=== PATIENT | female | born 1970 | race Caucasian/White ===

== ENCOUNTER 2018-01-12 18:19 | Emergency (ER) | payer OTHER ==
[2018-01-12] MEDS ORDERED: METHOCARBAMOL 1,000 MG in NA CHLORIDE 0.9% 100 ML IV ONE (19:00)
[2018-01-12] MEDS ORDERED: METHYLPREDNISOLONE 125 MG INJ ONE (19:01)
[2018-01-12] MEDS ORDERED: KETOROLAC 30 MG/ML INJ ONE (19:01)
--- NOTE | 2018-01-12 19:26 | RAD REPORT ---
EXAM DESCRIPTION: CT - Spine Lumbar Wo Con - 01/12/2018 7:17 pm CLINICAL HISTORY: Radiculopathy. LOWER BACK PAIN COMPARISON: No comparisons TECHNIQUE: Axial noncontrast CT imaging of the lumbar spine was performed with coronal and sagittal re-formatted images. All CT scans are performed using dose optimization technique as appropriate and may include automated exposure control or mA/KV adjustment according to patient size. FINDINGS: No acute lumbar spine fracture seen. Bilateral spondylolysis is identified at L5-S1 with 9 mm anterolisthesis of L5 on S1. Vacuum disc degeneration is also present at this level. Paraspinal tissues are normal in thickness. No paraspinal abscess or hematoma seen. Mild spondylosis with bulging of disc material is seen at L3-4 and L4-5. Followup nonemergent MR imag ing of the lumbar spine would be useful. IMPRESSION: 9 mm anterolisthesis of L5 on S1 with bilateral chronic spondylolysis. Moderate lower artur mbar degenerative changes are also seen. Consider MRI follow-up for assessment of disc disease if clinically desired.
[2018-01-12] MEDS ORDERED: NA CHLORIDE 0.9% 100 ML IV ONE (19:33)
[2018-01-12] MEDS ORDERED: METHOCARBAMOL 1,000 MG/10 ML VIAL IV ONE (19:33)
--- NOTE | 2018-01-12 20:51 | ER ---
Nurse's Notes [facility] Name: Lorena Villarreal Age: 47 yrs Sex: Female : 1970 Arrival Date: 01/12/2018 Time: 18:21 Bed 16 Private MD: Diagnosis: Right lower back pain Presentation: 01/12 18:22 Presenting complaint: Patient states: low back pain/ spasms since this morning. Has ss gotten progressively worse throughout the day. Pt denies injury. Transition of care: patient was not received from another setting of care. Onset of symptoms was January 12, 2018. Risk Assessment: Do you want to hurt yourself or someone else? Patient reports no desire to harm self or others. Initial Sepsis Screen: Does the patient meet any 2 criteria? No. Patient's initial sepsis screen is negative. Does the patient have a suspected source of infection? No. Patient's initial sepsis screen is negative. Care prior to arrival: None. 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 - Social history:: Smoking status: Patient/guardian denies using tobacco. - Ebola Screening: : Patient negative for fever greater than or equal to 101.5 degrees Fahrenheit, and additional compatible Ebola Virus Disease symptoms Patient denies exposure to infectious person Patient denies travel to an Ebola-affected area in the 21 days before illness onset. Screenin:38 Abuse screen: Denies threats or abuse. Denies injuries from another. Nutritional aj screening: No deficits noted. Tuberculosis screening: No symptoms or risk factors identified. Fall Risk None identified. Assessment: 19:38 General: Appears in no apparent distress. comfortable, Behavior is calm, cooperative, aj appropriate for age. Pain: Complains of pain in right low back and lumbar area. Neuro: Level of Consciousness is awake, alert, obeys commands, Oriented to person, place, time, situation, Appropriate for age. Respiratory: Airway is patent Respiratory effort is even, unlabored, Respiratory pattern is regular, symmetrical. Derm: Skin is intact, is healthy with good turgor, Skin is pink, warm \T\ dry. normal. Musculoskeletal: Reports pain in right low back. 20:10 Reassessment: Patient and/or family updated on plan of care and expected duration. Pain cr4 level reassessed. Patient is alert, oriented x 3, equal unlabored respirations, skin warm/dry/pink. Patient states feeling better. Patient states symptoms have improved. 21:05 Reassessment: Patient and/or family updated on plan of care and expected duration. Pain cr4 level reassessed. Patient is alert, oriented x 3, equal unlabored respirations, skin warm/dry/pink. Patient states feeling better. Vital Signs: 18:54 BP 135 / 96; Pulse 98; Resp 19; Temp 98.2(O); Pulse Ox 97% on R/A; Pain 10/10; dh3 19:25 BP 136 / 78; Pulse 84; Resp 17; Pulse Ox 98% on R/A; mt 20:42 BP 121 / 83; Pulse 75; Resp 16; Pulse Ox 94% ; Pain 6/10; cr4 ED Course: 18:21 Patient arrived in ED. ss 18:23 Leif Roe MD is Attending Physician. kdr 18:39 Ángela Julio RN is Primary Nurse. ss 18:50 Inserted saline lock: 22 gauge in right forearm, using aseptic technique. Blood ss collected. 18:51 Triage completed. ss 18:54 Arm band placed on right wrist. ss 19:[address] via stretcher. mw3 19:17 CT Lumbar Spine Wo Con In Process Unspecified. EDMS 19:30 Attending Physician role handed off by Leif Roe MD wa 19:30 Kamari Argueta MD is Attending Physician. wa 19:38 Patient has correct armband on for positive identification. aj 19:38 Inserted saline lock: 22 gauge in right antecubital area, using aseptic technique. aj 20:49 Francisco Delgado MD is Referral Physician. wa 21:40 No provider procedures requiring assistance completed. cr4 21:45 IV discontinued, intact, bleeding controlled, No redness/swelling at site. cr4 01/13 04:44 Notified ED physician of other patient nauseated. cr4 Administered Medications: 01/12 19:06 Drug: SOLU-Medrol 125 mg Route: IVP; Site: right antecubital; aj 19:06 Drug: TORadol 30 mg Route: IVP; Site: right antecubital; aj 20:20 Follow up: Response: Pain is decreased cr4 19:38 Drug: Robaxin 1 grams Route: IVPB; Infused Over: 1 hrs; Site: right antecubital; aj 20:44 Follow up: IV Status: Completed infusion cr4 21:14 Drug: Zofran 4 mg Route: IVP; Site: right antecubital; cr4 21:47 Follow up: Response: Nausea is decreased cr4 21:50 Follow up: Response: No adverse reaction; Nausea is decreased cr4 Outcome: 20:50 Discharge ordered by . wa 21:50 Discharged to home ambulatory. cr4 21:50 Condition: stable 21:50 Discharge instructions given to patient, Instructed on discharge instructions, follow up and referral plans. medication usage, Demonstrated understanding of instructions, follow-up care, medications. 21:52 Patient left the ED. cr4 Signatures: Dispatcher [employer] EDRaya Garcia RN RN aj Rittger, Kevin, MD MD kdr Ruiz, Claudia, RN RN cr4 Smirch, Shelby, RN RN ss Thompson, Moriah mt Herrera, Deanna [facility] Kamari Argueta MD MD wa Willis, Michelle 3
--- NOTE | 2018-01-12 20:51 | EDPHYS ---
Physician Documentation [facility] Name: Lorena Villarreal Age: 47 yrs Sex: Female : 1970 Arrival Date: 01/12/2018 Time: 18:21 Bed 16 Private MD: ED Physician Kamari Argueta HPI: 01/12 18:52 This 47 yrs old Female presents to ER via Ambulatory with complaints of low kdr back pain since this morning. 18:52 The patient presents with pain that is acute. The symptoms are located in the low back. kdr Onset: The symptoms/episode began/occurred this morning. The pain does not radiate. Associated signs and symptoms: The patient has no apparent associated signs or symptoms, Pertinent positives:. The problem was sustained without known cause. Modifying factors: The patient symptoms are alleviated by nothing, the patient symptoms are aggravated by any movement. Severity of symptoms: At their worst the symptoms were moderate, severe, just prior to arrival, in the emergency department the symptoms are unchanged. The patient has experienced similar episodes in the past, a few times. 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 - Social history:: Smoking status: Patient/guardian denies using tobacco. - Ebola Screening: : Patient negative for fever greater than or equal to 101.5 degrees Fahrenheit, and additional compatible Ebola Virus Disease symptoms Patient denies exposure to infectious person Patient denies travel to an Ebola-affected area in the 21 days before illness onset. ROS: 18:52 Constitutional: Negative for fever, chills, and weight loss, Eyes: Negative for injury, kdr pain, redness, and discharge, Neck: Negative for injury, pain, and swelling, Cardiovascular: Negative for chest pain, palpitations, and edema, Respiratory: Negative for shortness of breath, cough, wheezing, and pleuritic chest pain, Abdomen/GI: Negative for abdominal pain, nausea, vomiting, diarrhea, and constipation, : Negative for injury, bleeding, discharge, and swelling, MS/Extremity: Negative for injury and deformity, Skin: Negative for injury, rash, and discoloration, Neuro: Negative for headache, weakness, numbness, tingling, and seizure activity. Psych: Negative for depression, anxiety, suicide ideation, homicidal ideation, and hallucinations, Allergy/Immunology: Negative for hives, rash, and allergies, Endocrine: Negative for neck swelling, polydipsia, polyuria, polyphagia, and marked weight changes, Hematologic/Lymphatic: Negative for swollen nodes, abnormal bleeding, and unusual bruising. 18:52 Back: Positive for decreased range of motion, pain at rest, pain with movement, of the lumbar area and right low back. Exam: 18:52 Constitutional: This is a well developed, well nourished patient who is awake, alert, kdr and in mild to moderate distress. Head/Face: Normocephalic, atraumatic. 18:52 Back: pain, that is moderate, that is severe, of the lumbar area and right low back, ROM is painful, decreased, with all movement, normal spinal alignment noted, CVA tenderness, is absent, vertebral tenderness, is not appreciated, muscle spasm, is appreciated in the right low back, The patient is standing and unable to sit down. Vital Signs: 18:54 BP 135 / 96; Pulse 98; Resp 19; Temp 98.2(O); Pulse Ox 97% on R/A; Pain 10/10; dh3 19:25 BP 136 / 78; Pulse 84; Resp 17; Pulse Ox 98% on R/A; mt 20:42 BP 121 / 83; Pulse 75; Resp 16; Pulse Ox 94% ; Pain 6/10; cr4 MDM: 19:30 Patient medically screened. wa 20:38 Differential diagnosis: Ligament Injury spinal injury, vertebral fracture, r/o spinal wa stenosis with cord impingement. Data reviewed: vital signs, nurses notes, radiologic studies. Test interpretation: by ED physician or midlevel provider: 9 mm anterolisthesis of L5 on S1 with bilateral chronic spondylosis. Moderate lumbar DJD. Response to treatment: the patient's symptoms have markedly improved after treatment. Special discussion: received pt as sign out by Dr. Roe. pt with back pain. improved with meds. will d/c with meds and close neuro f/u for further eval. 01/12 18:52 Order name: CT Lumbar Spine Wo Con; Complete Time: 19:40 kdr Administered Medications: 19:06 Drug: SOLU-Medrol 125 mg Route: IVP; Site: right antecubital; aj 19:06 Drug: TORadol 30 mg Route: IVP; Site: right antecubital; aj 20:20 Follow up: Response: Pain is decreased cr4 19:38 Drug: Robaxin 1 grams Route: IVPB; Infused Over: 1 hrs; Site: right antecubital; aj 20:44 Follow up: IV Status: Completed infusion cr4 21:14 Drug: Zofran 4 mg Route: IVP; Site: right antecubital; cr4 21:47 Follow up: Response: Nausea is decreased cr4 21:50 Follow up: Response: No adverse reaction; Nausea is decreased cr4 Disposition: 01/12/18 20:50 Discharged to Home. Impression: Right lower back pain. - Condition is Stable. - Prescriptions for Ibuprofen 600 mg Oral Tablet - take 1 tablet by ORAL route every 8 hours As needed take with food; 20 tablet. Valium 2 mg Oral Tablet - take 1 tablet by ORAL route At bedtime As needed; 5 tablet. Prednisone 20 mg Oral Tablet - take 2 tablet by ORAL route once daily for 5 days; 10 tablet. Pepcid 20 mg Oral Tablet - take 1 tablet by ORAL route 2 times per day for 5 days; 10 tablet. - Work release form, Medication Reconciliation Form, Thank You Letter, Antibiotic Education, Prescription Opioid Use form. - Follow up: Francisco Delgado MD; When: 2 - 3 days; Reason: Recheck today's complaints. - Problem is an acute exacerbation. - Symptoms have improved. - Notes: take the medicines as needed as prescribed. follow up with the neurologist for further evaluation of your back pain Signatures: Dispatcher [employer] Raya Garcia RN RN aj Rittger, Kevin, MD MD kdr Ruiz, Claudia, RN RN cr4 Ángela Julio RN RN Kamari Argueta MD MD wa Corrections: (The following items were deleted from the chart) 21:52 20:50 01/12/2018 20:50 Discharged to Home. Impression: Right lower back pain. Condition cr4 is Stable. Forms are Medication Reconciliation Form, Thank You Letter, Antibiotic Education, Prescription Opioid Use. Follow up: Francisco Delgado; When: 2 - 3 days; Reason: Recheck today's complaints. Problem is an acute exacerbation. Symptoms have improved. wa
[2018-01-12] MEDS ORDERED: ONDANSETRON 4 MG/2 ML VIAL ONE (21:10)
== END 2018-01-12 21:52 | disposition home or self-care (01) ==
LOC: ER 18:19
DX: M54.5 Low back pain (principal); I10 Essential (primary) hypertension; E11.9 Type 2 diabetes mellitus without complications
CPT/HCPCS: 72131; 96365; 96375; 99284; J2405; J2800; J2930

== ENCOUNTER 2018-03-10 13:17 | Emergency (ER) | payer OTHER ==
[2018-03-10] MEDS ORDERED: NA CHLORIDE 0.9% 500 ML ONE (13:40)
--- NOTE | 2018-03-10 13:41 | RAD REPORT ---
EXAM DESCRIPTION: RAD - Chest Single View - 03/10/2018 1:34 pm CLINICAL HISTORY: PALPITATIONS Chest pain. COMPARISON: CHEST SINGLE VIEW dated 07/25/2009 FINDINGS: Portable technique limits examination quality. The lungs are grossly clear. The heart is normal in size. No displaced fractures. IMPRESSION: No acute intrathoracic process suspected.
[2018-03-10 13:52] LABS: Absolute Lymphocytes (CBC) 2.9 K/uL (0.7-4.9); Absolute Monocytes 0.6 K/uL (0.1-1.3); Basophils % 0.9 % (0-1.3); Eosinophils % 4.3 % (0-4.4); Hematocrit 43.2 % (36.0-45.0); Lymphocytes % 29.3 % (15.3-44.8); MCH 31.3 pg (27.0-35.0); MCV 90.6 fL (80-100); MPV 7.9 fL (7.6-11.3); Monocytes % 6.4 % (3.3-12.3); RBC Red Blood Cell Count 4.77 M/uL (3.86-4.86)
[2018-03-10 14:22] LABS: BUN Blood Urea Nitrogen 18 mg/dL (7-18); Bicarbonate 24 mmol/L (21-32); CKMB Creatine Kinase MB < 1.0 ng/mL (0.3-3.6); Creatine Phosphokinase 91 U/L (26-192); Glucose Level 95 mg/dL (74-106); NT PRO-BNP 16 pg/mL (<125); Potassium 3.8 mmol/L (3.5-5.1); Sodium Level 138 mmol/L (136-145)
--- NOTE | 2018-03-10 15:05 | EDPHYS ---
Physician Documentation [facility] Name: Lorena Villarreal Age: 47 yrs Sex: Female : 1970 Arrival Date: 03/10/2018 Time: 13:18 Bed 6 Private MD: ED Physician Giorgio Rm HPI: 03/10 15:00 This 47 yrs old Female presents to ER via Ambulatory with complaints of rn Palpitations. 15:00 The patient presents with a history of heart racing. Context: The symptoms occur at rn rest. Onset: The symptoms/episode began/occurred just prior to arrival. Duration: The patient or guardian reports a single episode, that is still ongoing. Severity of symptoms: At their worst the symptoms were moderate in the emergency department the symptoms have improved. The patient has experienced similar episodes in the past. Reports intermittent episodes of palpitations, happens a few times a week, never this bad, broke out into sweat, lightheaded, palpitations, no chest pain/sob. . Historical: - Allergies: 13:21 No Known Allergies; aj1 - Home Meds: 13:21 lisinopril 5 mg Oral tab 1 tab once daily [Active]; metformin 1,000 mg Oral tr24 1 tab aj1 once daily [Active]; Wellbutrin XL 150 mg Oral Tb24 1 tab nightly [Active]; - PMHx: 13:21 Diabetes - NIDDM; Hypertension; PCOS; aj1 - PSHx: 13:21 Hysterectomy; lap band; breast reduction; aj1 - Immunization history:: Flu vaccine is up to date. - Social history:: Smoking status: Patient/guardian denies using tobacco. - Ebola Screening: : Patient denies travel to an Ebola-affected area in the 21 days before illness onset. - Family history:: not pertinent. - Hospitalizations: : No recent hospitalization is reported. ROS: 15:00 Constitutional: Negative for fever, chills, and weight loss, Eyes: Negative for injury, rn pain, redness, and discharge, Neck: Negative for injury, pain, and swelling, Cardiovascular: Negative for chest pain, edema Respiratory: Negative for shortness of breath, cough, wheezing, and pleuritic chest pain, Abdomen/GI: Negative for abdominal pain, nausea, vomiting, diarrhea, and constipation, MS/Extremity: Negative for injury and deformity, Skin: Negative for injury, rash, and discoloration, Neuro: Negative for seizure. Exam: 15:00 Constitutional: This is a well developed, well nourished patient who is awake, alert, rn and in no acute distress. Head/Face: Normocephalic, atraumatic. ENT: MMM Cardiovascular: Regular rate and rhythm with a normal S1 and S2. No gallops, murmurs, or rubs. Normal PMI, no JVD. No pulse deficits. Respiratory: Lungs have equal breath sounds bilaterally, clear to auscultation and percussion. No rales, rhonchi or wheezes noted. No increased work of breathing, no retractions or nasal flaring. Skin: Warm, dry, no evidence of cellulitis. MS/ Extremity: Pulses equal, no cyanosis. Neurovascular intact. Full, normal range of motion. Equal circumference. Neuro: Awake and alert, GCS 15, oriented to person, place, time, and situation. Motor strength 5/5 in all extremities. Sensory grossly intact. Vital Signs: 13:21 BP 144 / 95; Pulse 124; Resp 17; Pulse Ox 98% on R/A; Weight 97.52 kg (R); Height 5 ft. aj1 6 in. (167.64 cm) (R); 13:48 Pulse 104 MON; Resp 17; Pulse Ox 100% on R/A; sg 14:41 BP 113 / 85; Pulse 90; Resp 17 S; Pulse Ox 100% ; Pain 0/10; sg 14:45 Temp 97.7; sg 13:21 Body Mass Index 34.70 (97.52 kg, 167.64 cm) aj1 MDM: 13:23 Patient medically screened. rn 15:00 Data reviewed: vital signs, nurses notes, lab test result(s), EKG, radiologic studies, rn plain films, and as a result, I will discharge patient. Counseling: I had a detailed discussion with the patient and/or guardian regarding: the historical points, exam findings, and any diagnostic results supporting the discharge/admit diagnosis, lab results, radiology results, the need for outpatient follow up, to return to the emergency department if symptoms worsen or persist or if there are any questions or concerns that arise at home. Response to treatment: the patient's symptoms have resolved after treatment, the patient's condition has returned to base line, the patient is now symptom free, and as a result, I will discharge patient. Special discussion: I discussed with the patient/guardian in detail that at this point there is no indication for admission to the hospital. It is understood, however, that if the symptoms persist or worsen the patient needs to return immediately for re-evaluation. 03/10 13:24 Order name: Basic Metabolic Panel; Complete Time: 15:00 rn 03/10 13:24 Order name: CBC with Diff; Complete Time: 15: rn 03/10 13:24 Order name: Ckmb; Complete Time: 15: rn 03/10 13:24 Order name: CPK; Complete Time: 15:00 rn 03/10 13:24 Order name: Magnesium; Complete Time: 15: rn 03/10 13:24 Order name: NT PRO-BNP; Complete Time: 15: rn 03/10 13:24 Order name: Troponin (emerg Dept Use Only); Complete Time: 15:00 rn 03/10 13:24 Order name: XRAY Chest (1 view); Complete Time: 13:43 rn 03/10 13:24 Order name: TSH; Complete Time: 15: rn 03/10 13:24 Order name: T4 Free; Complete Time: 15:00 rn 03/10 13:29 Order name: Lactate rn 03/10 13:29 Order name: Lactate; Complete Time: 15:00 EDPR 03/10 13:39 Order name: Glucose, Ancillary Testing; Complete Time: 13:43 EDMS 03/10 13:24 Order name: EKG; Complete Time: 13:24 rn 03/10 13:24 Order name: Cardiac monitoring; Complete Time: 13:34 rn 03/10 13:24 Order name: EKG - Nurse/Tech; Complete Time: 13:34 rn 03/10 13:24 Order name: IV Saline Lock; Complete Time: 13:46 rn 03/10 13:24 Order name: Labs collected and sent; Complete Time: 13:46 rn 03/10 13:24 Order name: O2 Per Protocol; Complete Time: 13:34 rn 03/10 13:24 Order name: O2 Sat Monitoring; Complete Time: 13:34 rn Administered Medications: 13:46 Drug: NS 0.9% 500 ml Route: IV; Rate: bolus; Site: right antecubital; sg 14:39 Follow up: Response: No adverse reaction; IV Status: Completed infusion; IV Intake: sg 500ml Disposition: 03/10/18 15:04 Discharged to Home. Impression: Palpitations. - Condition is Stable. - Discharge Instructions: Palpitations. - Medication Reconciliation Form, Thank You Letter, Antibiotic Education, Prescription Opioid Use form. - Follow up: Private Physician; When: As needed; Reason: Recheck today's complaints, Re-evaluation by your physician. - Problem is new. - Symptoms have improved. Signatures: Dispatcher [employer] EDMS Sil Tavera RN RN aj1 Dell Raymond RN RN sg Giorgio Rm MD MD rn Baxter, Heather, RN RN hb Corrections: (The following items were deleted from the chart) 15:26 15:04 03/10/2018 15:04 Discharged to Home. Impression: Palpitations. Condition is hb Stable. Forms are Medication Reconciliation Form, Thank You Letter, Antibiotic Education, Prescription Opioid Use. Follow up: Private Physician; When: As needed; Reason: Recheck today's complaints, Re-evaluation by your physician. Problem is new. Symptoms have improved. rn
--- NOTE | 2018-03-10 15:05 | ER ---
Nurse's Notes [facility] Name: Lorena Villarreal Age: 47 yrs Sex: Female : 1970 Arrival Date: 03/10/2018 Time: 13:18 Bed 6 Private MD: Diagnosis: Palpitations Presentation: 03/10 13:18 Presenting complaint: Patient states: She was at work when she suddenly became aj1 diaphoretic, short of breath and began having palpitations. She checked her heart rate and it was in the 140's. Denies chest pain. States that she has been having palpitations for a year now, but they have been occurring more often lately. Transition of care: patient was not received from another setting of care. Onset of symptoms was March 10, 2018. Risk Assessment: Do you want to hurt yourself or someone else? Patient reports no desire to harm self or others. Initial Sepsis Screen: Does the patient meet any 2 criteria? HR > 90 bpm. No. Patient's initial sepsis screen is negative. Does the patient have a suspected source of infection? No. Patient's initial sepsis screen is negative. Care prior to arrival: None. 13:18 Method Of Arrival: Ambulatory aj1 13:18 Acuity: EVA 3 aj1 Triage Assessment: 13:21 General: Appears in no apparent distress. uncomfortable, Behavior is calm, cooperative, aj1 appropriate for age. Pain: Denies pain. Neuro: Level of Consciousness is awake, alert, obeys commands. Cardiovascular: Reports palpitations, shortness of breath, Denies chest pain, Patient's skin is warm and dry. Rhythm is sinus tachycardia. Respiratory: Airway is patent Respiratory effort is even, unlabored, Respiratory pattern is regular, symmetrical, the patient reports symptoms have resolved. Historical: - Allergies: 13:21 No Known Allergies; aj1 - Home Meds: 13:21 lisinopril 5 mg Oral tab 1 tab once daily [Active]; metformin 1,000 mg Oral tr24 1 tab aj1 once daily [Active]; Wellbutrin XL 150 mg Oral Tb24 1 tab nightly [Active]; - PMHx: 13:21 Diabetes - NIDDM; Hypertension; PCOS; aj1 - PSHx: 13:21 Hysterectomy; lap band; breast reduction; aj1 - Immunization history:: Flu vaccine is up to date. - Social history:: Smoking status: Patient/guardian denies using tobacco. - Ebola Screening: : Patient denies travel to an Ebola-affected area in the 21 days before illness onset. - Family history:: not pertinent. - Hospitalizations: : No recent hospitalization is reported. Screenin:47 Abuse screen: Denies threats or abuse. Denies injuries from another. Nutritional sg screening: No deficits noted. Tuberculosis screening: No symptoms or risk factors identified. Never had TB. Fall Risk None identified. Assessment: 13:47 General: Appears in no apparent distress. comfortable, well groomed, well developed, sg well nourished, Behavior is calm, cooperative, appropriate for age. Pain: Denies pain. Neuro: No deficits noted. Neuro: Reports dizziness. Cardiovascular: Reports lightheadedness, palpitations, Heart tones S1 S2 present Capillary refill is brisk in bilateral fingers Patient's skin is warm and dry. Chest pain is denied. Respiratory: Airway is patent Respiratory effort is even, unlabored, Respiratory pattern is regular, symmetrical. GI: No signs and/or symptoms were reported involving the gastrointestinal system. : No signs and/or symptoms were reported regarding the genitourinary system. EENT: No signs and/or symptoms were reported regarding the EENT system. Derm: Skin is intact, is healthy with good turgor. Musculoskeletal: No signs and/or symptoms reported regarding the musculoskeletal system. 14:41 Reassessment: Patient appears in no apparent distress at this time. Patient and/or sg family updated on plan of care and expected duration. Pain level reassessed. Patient is alert, oriented x 3, equal unlabored respirations, skin warm/dry/pink. Patient states feeling better. Vital Signs: 13:21 BP 144 / 95; Pulse 124; Resp 17; Pulse Ox 98% on R/A; Weight 97.52 kg (R); Height 5 ft. aj1 6 in. (167.64 cm) (R); 13:48 Pulse 104 MON; Resp 17; Pulse Ox 100% on R/A; sg 14:41 BP 113 / 85; Pulse 90; Resp 17 S; Pulse Ox 100% ; Pain 0/10; sg 14:45 Temp 97.7; sg 13:21 Body Mass Index 34.70 (97.52 kg, 167.64 cm) aj1 ED Course: 13:18 Patient arrived in ED. aj1 13:20 Triage completed. aj1 13:21 Arm band placed on Patient placed in an exam room. aj1 13:23 Giorgio Rm MD is Attending Physician. rn 13:34 XRAY Chest (1 view) In Process Unspecified. EDMS 13:46 Dell Raymond, RN is Primary Nurse. sg 13:47 Initial lab(s) drawn, by me, sent to lab. Inserted saline lock: 20 gauge in right sg antecubital area, using aseptic technique. Blood collected. 14:00 Patient has correct armband on for positive identification. Placed in gown. Bed in low hb position. Call light in reach. Side rails up X 1. 15:25 No provider procedures requiring assistance completed. IV discontinued, intact, hb bleeding controlled, No redness/swelling at site. Pressure dressing applied. Administered Medications: 13:46 Drug: NS 0.9% 500 ml Route: IV; Rate: bolus; Site: right antecubital; sg 14:39 Follow up: Response: No adverse reaction; IV Status: Completed infusion; IV Intake: sg 500ml Intake: 14:39 IV: 500ml; Total: 500ml. sg Outcome: 15:04 Discharge ordered by . rn 15:25 Discharged to home ambulatory. hb 15:25 Condition: stable 15:25 Discharge instructions given to patient, Instructed on discharge instructions, follow up and referral plans. medication usage, Demonstrated understanding of instructions, follow-up care, medications. 15:26 Patient left the ED. hb Signatures: Dispatcher [employer] EDAZ Sil Tavera RN RN aj1 Dell Raymond RN RN Giorgio Rm MD MD rn Baxter, Heather, RN RN hb Corrections: (The following items were deleted from the chart) 13:23 13:18 Presenting complaint: Patient states: She was at work when she suddenly became aj1 diaphoretic, short of breath and began having palpitations. She checked her heart rate and it was in the 40's. Denies chest pain. States that she has been having palpitations for a year now, but they have been occurring more often lately. aj1
--- NOTE | 2018-03-10 16:37 | EKG ---
Test Date: 2018-03-10 Test Time: 13:03:27 Drill Instructor: HB MEASUREMENT RESULTS: Intervals: Rate: 115 WV: 142 QRSD: 76 QT: 316 QTc: 437 [place]: P: 48 WV: 142 QRS: 24 T: 49 INTERPRETIVE STATEMENTS: Sinus tachycardia Otherwise normal ECG No previous ECG available for comparison Electronically Signed On 03-10-18 16:36:53 CDT by Homero Lorenzo
== END 2018-03-10 15:26 | disposition home or self-care (01) ==
LOC: ER 13:17
DX: R00.2 Palpitations (principal); E11.9 Type 2 diabetes mellitus without complications; Z79.84 Long term (current) use of oral hypoglycemic drugs; I10 Essential (primary) hypertension
CPT/HCPCS: 36415; 71045; 80048; 82550; 82553; 82962; 83605; 83735; 83880; 84439; 84443; 84484; 85025; 93005; 96360; 99284

== ENCOUNTER 2019-05-03 14:10 | Emergency (ER) | payer OTHER ==
[2019-05-03] MEDS ORDERED: MECLIZINE HCL 12.5 MG TAB ONE (14:46)
[2019-05-03] MEDS ORDERED: ONDANSETRON 4 MG/2 ML VIAL ONE (14:47)
[2019-05-03] MEDS ORDERED: NA CHLORIDE 0.9% 1,000 ML ONE (14:47)
[2019-05-03 14:48] LABS: Absolute Lymphocytes (CBC) 2.8 K/uL (0.7-4.9); Hematocrit 38.8 % (36.0-45.0); Lymphocytes % 32.7 % (15.3-44.8); MPV 7.8 fL (7.6-11.3); RBC Red Blood Cell Count 4.21 M/uL (3.86-4.86)
[2019-05-03 14:49] LABS: Protime INR 1.03
[2019-05-03 15:14] LABS: ALT/SGPT 39 U/L (12-78); AST/SGOT 28 U/L (15-37); Albumin 3.4 g/dL (3.4-5.0); Alkaline Phosphatase 55 U/L (45-117); BUN Blood Urea Nitrogen 11 mg/dL (7-18); Bicarbonate 23 mmol/L (21-32); Bilirubin Direct < 0.1 mg/dL (0-0.2); Bilirubin Total 0.3 mg/dL (0.2-1.0); Glucose Level 109 mg/dL (74-106); Magnesium 1.8 mg/dL (1.8-2.4); NT PRO-BNP 33 pg/mL (<125); Potassium 3.7 mmol/L (3.5-5.1); Sodium Level 140 mmol/L (136-145); Troponin (Emerg Dept Use Only) < 0.02 ng/mL (0.0-0.045)
--- NOTE | 2019-05-03 16:23 | ER ---
Nurse's Notes [facility] Name: Lorena Villarreal Age: 48 yrs Sex: Female : 1970 Arrival Date: 05/03/2019 Time: 14:12 Bed 23 Private MD: Diagnosis: Type 2 diabetes mellitus;Abdominal tenderness;Weakness;Subluxation of unspecified lumbar [id number]-R1-V0;Spondylolysis, lumbar region;Low back pain Presentation: 05/03 14:22 Presenting complaint: EMS states: [facility] [place] [facility] when she felt rv jittery and suddenly weak and diaphoretic. have history of DM and takes Metformin. patient ate some chocolates and three quarters of soda. on the scene, blood sugar is 103. patient complains of having vomiting and diarrhea since Monday, and today is extremely weak and dizzy. Transition of care: patient was not received from another setting of care. Onset of symptoms was May 03, 2019 at 14:00. Risk Assessment: Do you want to hurt yourself or someone else? Patient reports no desire to harm self or others. Initial Sepsis Screen: Does the patient meet any 2 criteria? No. Patient's initial sepsis screen is negative. Does the patient have a suspected source of infection? No. Patient's initial sepsis screen is negative. Care prior to arrival: None. 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 - Social history:: Smoking status: Patient/guardian denies using tobacco, never smoked. - Ebola Screening: : No symptoms or risks identified at this time. - Family history:: not pertinent. Screenin:30 Abuse screen: Denies threats or abuse. Denies injuries from another. Nutritional rv screening: No deficits noted. Tuberculosis screening: No symptoms or risk factors identified. Fall Risk None identified. Assessment: 14:29 General: Appears in no apparent distress. weak. Behavior is calm, cooperative. Pain: rv Complains of pain in abdomen. Neuro: Level of Consciousness is awake, alert, obeys commands, Oriented to person, place, time, situation. Cardiovascular: Patient's skin is warm and dry. Respiratory: Airway is patent. GI: Reports upper abdominal pain. 15:08 Reassessment: patient taken to CT scan. awaiting result. : No signs and/or symptoms rv were reported regarding the genitourinary system. EENT: No signs and/or symptoms were reported regarding the EENT system. Derm: Skin is intact. Musculoskeletal: No signs and/or symptoms reported regarding the musculoskeletal system. Vital Signs: 14:26 BP 124 / 85; Pulse 78; Resp 12; Temp 98.6; Pulse Ox 96% on R/A; rv 15:00 BP 111 / 84; Pulse 80; Resp 16; Pulse Ox 99% on R/A; rv 15:30 BP 101 / 70; Pulse 73; Resp 18; Pulse Ox 99% on R/A; rv 16:00 BP 120 / 78; Pulse 78; Resp 18; Pulse Ox 100% on R/A; rv 16:30 BP 123 / 87; Pulse 75; Resp 17; Pulse Ox 100% on R/A; rv 17:00 BP 119 / 85; Pulse 70; Resp 17; Pulse Ox 100% on R/A; rv ED Course: 14:12 Patient arrived in ED. rv 14:21 Flaquito Menchaca, ANJALI is Primary Nurse. rv 14:22 Jose Guadalupe Lemon MD is Attending Physician. arturo 14:26 Triage completed. rv 14:30 Initial lab(s) drawn, by me, sent to lab. Maintain EMS IV. Dressing intact. Good blood rv return noted. Site clean \T\ dry. Gauge \T\ site: g20 right AC. 14:30 Patient has correct armband on for positive identification. Placed in gown. Bed in low rv position. Call light in reach. hand assembler on. Pulse ox on. NIBP on. 14:30 Arm band placed on right wrist. Patient placed in the treatment room, on a stretcher, rv on cardiac specialist, on pulse oximetry, Patient notified of wait time. EKG completed in triage. Results shown to MD. 14:39 CT Head Brain wo Cont In Process Unspecified. EDMS 15:36 XRAY Chest (1 view) In Process Unspecified. EDMS 16:22 Hair Sanchez MD is Referral Physician. arturo 17:17 No provider procedures requiring assistance completed. IV discontinued, intact, rv bleeding controlled, No redness/swelling at site. Pressure dressing applied. Administered Medications: 14:30 Drug: NS 0.9% 1000 ml Route: IV; Rate: 1 bolus; Site: right antecubital; rv 17:19 Follow up: IV Status: Completed infusion; IV Intake: 1000ml rv 14:30 Drug: Zofran 4 mg Route: IVP; Site: right antecubital; rv 17:19 Follow up: Response: No adverse reaction; Marked relief of symptoms rv 14:45 Drug: Meclizine 50 mg Route: PO; rv 17:18 Follow up: Response: No adverse reaction; Marked relief of symptoms rv Intake: 17:19 IV: 1000ml; Total: 1000ml. rv Outcome: 16:23 Discharge ordered by MD. arturo 17:18 Discharged to home ambulatory, with family. rv 17:18 Condition: good 17:18 Discharge instructions given to patient, Instructed on discharge instructions, follow up and referral plans. medication usage, Demonstrated understanding of instructions, follow-up care, medications, Prescriptions given X 2. 17:18 Patient left the ED. rv Signatures: Dispatcher [employer] Jose Guadalupe Bulreson MD MD cha Vicente, Ronaldo, RN RN rv
--- NOTE | 2019-05-03 16:24 | EDPHYS ---
Physician Documentation [facility] Name: Lorena Villarreal Age: 48 yrs Sex: Female : 1970 Arrival Date: 05/03/2019 Time: 14:12 Bed 23 Private MD: ED Physician Jose Guadalupe Lemon HPI: 05/03 16:16 This 48 yrs old Female presents to ER via EMS with complaints of weakness, arturo abdominal pain and dizziness. 16:16 The patient presents with abdominal pain in the epigastric area, in the upper abdomen, arturo abdominal distention in the upper abdomen, in the lower abdomen. Onset: The symptoms/episode began/occurred 2 day(s) ago. weakness and abdominal pain. The patient presents with dizziness. Onset: The symptoms/episode began/occurred just prior to arrival, today. Modifying factors: The symptoms are alleviated by nothing, the symptoms are aggravated by nothing. Severity of symptoms: At their worst the symptoms were moderate in the emergency department the symptoms have improved moderately. DUMPER: 14:26 LMP N/A - Hysterectomy rv Historical: - Allergies: 14:28 No Known Allergies; rv - Home Meds: 14:28 lisinopril 5 mg Oral tab 1 tab once daily [Active]; metformin 1,000 mg Oral tr24 1 tab rv twice a day [Active]; Wellbutrin XL 150 mg Oral Tb24 1 tab nightly [Active]; - PMHx: 14:28 Diabetes - NIDDM; Hypertension; PCOS; rv - PSHx: 14:28 Hysterectomy; rv - Immunization history:: Adult Immunizations up to date. - Social history:: Smoking status: Patient/guardian denies using tobacco, never smoked. - Ebola Screening: : No symptoms or risks identified at this time. - Family history:: not pertinent. ROS: 16:16 Constitutional: Negative for fever, chills, and weight loss, Eyes: Negative for injury, arturo pain, redness, and discharge, ENT: Negative for injury, pain, and discharge, Neck: Negative for injury, pain, and swelling, Cardiovascular: Negative for chest pain, palpitations, and edema, Respiratory: Negative for shortness of breath, cough, wheezing, and pleuritic chest pain, Back: Negative for injury and pain, : Negative for injury, bleeding, discharge, and swelling, MS/Extremity: Negative for injury and deformity, Skin: Negative for injury, rash, and discoloration, Neuro: Negative for headache, weakness, numbness, tingling, and seizure, Psych: Negative for depression, anxiety, suicide ideation, homicidal ideation, and hallucinations, Allergy/Immunology: Negative for hives, rash, and allergies, Endocrine: Negative for neck swelling, polydipsia, polyuria, polyphagia, and marked weight changes, Hematologic/Lymphatic: Negative for swollen nodes, abnormal bleeding, and unusual bruising. 16:16 Abdomen/GI: Positive for abdominal pain, of the epigastric area and right upper quadrant. Exam: 16:16 Constitutional: This is a well developed, well nourished patient who is awake, alert, arturo and in no acute distress. Head/Face: Normocephalic, atraumatic. Eyes: Pupils equal round and reactive to light, extra-ocular motions intact. Lids and lashes normal. Conjunctiva and sclera are non-icteric and not injected. Cornea within normal limits. Periorbital areas with no swelling, redness, or edema. ENT: Nares patent. No nasal discharge, no septal abnormalities noted. Tympanic membranes are normal and external auditory canals are clear. Oropharynx with no redness, swelling, or masses, exudates, or evidence of obstruction, uvula midline. Mucous membranes moist. Neck: Trachea midline, no thyromegaly or masses palpated, and no cervical lymphadenopathy. Supple, full range of motion without nuchal rigidity, or vertebral point tenderness. No Meningismus. Chest/axilla: Normal chest wall appearance and motion. Nontender with no deformity. No lesions are appreciated. Cardiovascular: Regular rate and rhythm with a normal S1 and S2. No gallops, murmurs, or rubs. Normal PMI, no JVD. No pulse deficits. Respiratory: Lungs have equal breath sounds bilaterally, clear to auscultation and percussion. No rales, rhonchi or wheezes noted. No increased work of breathing, no retractions or nasal flaring. Back: No spinal tenderness. No costovertebral tenderness. Full range of motion. Female : Normal external genitalia. Skin: Warm, dry with normal turgor. Normal color with no rashes, no lesions, and no evidence of cellulitis. MS/ Extremity: Pulses equal, no cyanosis. Neurovascular intact. Full, normal range of motion. Neuro: Awake and alert, GCS 15, oriented to person, place, time, and situation. Cranial nerves II-XII grossly intact. Motor strength 5/5 in all extremities. Sensory grossly intact. Cerebellar exam normal. Normal gait. Psych: Awake, alert, with orientation to person, place and time. Behavior, mood, and affect are within normal limits. 16:16 Abdomen/GI: Inspection: distension, Bowel sounds: normal, Palpation: mild abdominal tenderness, in the epigastric area and right upper quadrant. 16:16 Musculoskeletal/extremity: DVT Exam: No signs of deep vein thrombosis. no pain, no swelling, no tenderness, negative Homans' sign noted on exam, no appreciated bluish discoloration, no erythema, no increased warmth. Vital Signs: 14:26 BP 124 / 85; Pulse 78; Resp 12; Temp 98.6; Pulse Ox 96% on R/A; rv 15:00 BP 111 / 84; Pulse 80; Resp 16; Pulse Ox 99% on R/A; rv 15:30 BP 101 / 70; Pulse 73; Resp 18; Pulse Ox 99% on R/A; rv 16:00 BP 120 / 78; Pulse 78; Resp 18; Pulse Ox 100% on R/A; rv 16:30 BP 123 / 87; Pulse 75; Resp 17; Pulse Ox 100% on R/A; rv 17:00 BP 119 / 85; Pulse 70; Resp 17; Pulse Ox 100% on R/A; rv MDM: 14:22 Patient medically screened. [facility] 16:21 Data reviewed: vital signs, nurses notes, lab test result(s), EKG, radiologic studies, [facility] CT scan, plain films, ultrasound. 05/03 14:24 Order name: Basic Metabolic Panel; Complete Time: 16:15 [facility] 05/03 14:24 Order name: CBC with Diff; Complete Time: 16:15 [facility] 05/03 14:24 Order name: LFT's; Complete Time: 16:15 [facility] 05/03 14:24 Order name: Magnesium; Complete Time: 16:15 [facility] 05/03 14:24 Order name: NT PRO-BNP; Complete Time: 16:15 [facility] 05/03 14:24 Order name: PT-INR; Complete Time: 16:15 [facility] 05/03 14:24 Order name: Troponin (emerg Dept Use Only); Complete Time: 16:15 [facility] 05/03 14:24 Order name: XRAY Chest (1 view) [facility] 05/03 14:24 Order name: CT Head Brain wo Cont [facility] 05/03 14:24 Order name: Urine Culture [facility] 05/03 15:52 Order name: Urine Dipstick--Ancillary (enter results) [facility] 05/03 14:24 Order name: EKG; Complete Time: 14:25 [facility] 05/03 14:24 Order name: Cardiac monitoring; Complete Time: 14:32 [facility] 05/03 14:24 Order name: EKG - Nurse/Tech; Complete Time: 14:32 [facility] 05/03 14:24 Order name: IV Saline Lock; Complete Time: 14:32 [facility] 05/03 14:24 Order name: Labs collected and sent; Complete Time: 14:33 [facility] 05/03 14:24 Order name: O2 Per Protocol; Complete Time: 14:33 [facility] 05/03 14:24 Order name: O2 Sat Monitoring; Complete Time: 14:33 [facility] 05/03 14:24 Order name: Urine Dipstick-Ancillary (obtain specimen); Complete Time: 15:06 [facility] Administered Medications: 14:30 Drug: NS 0.9% 1000 ml Route: IV; Rate: 1 bolus; Site: right antecubital; rv 17:19 Follow up: IV Status: Completed infusion; IV Intake: 1000ml rv 14:30 Drug: Zofran 4 mg Route: IVP; Site: right antecubital; rv 17:19 Follow up: Response: No adverse reaction; Marked relief of symptoms rv 14:45 Drug: Meclizine 50 mg Route: PO; rv 17:18 Follow up: Response: No adverse reaction; Marked relief of symptoms rv Disposition: 05/03/19 16:23 Discharged to Home. Impression: Type 2 diabetes mellitus, Abdominal tenderness, Weakness, Subluxation of unspecified lumbar vertebra - L5-S1, Spondylolysis, lumbar region, Low back pain. - Condition is Stable. - Discharge Instructions: Abdominal Pain, Adult, Back Pain, Adult, Chronic Back Pain, Type 2 Diabetes Mellitus, Diagnosis, Adult, Weakness, Abdominal Pain, Adult, Qkys-bi-Irch, Back Pain, Adult, Lsoq-[id number], Weakness, Dpjy-[id number]-Jxxt, Type 2 Diabetes Mellitus, Diagnosis, Adult, Qfzw-lh-[id number]. - Prescriptions for Bentyl 10 mg Oral Capsule - take 1 capsule by ORAL route every 6 hours As needed; 40 capsule. Pepcid 20 mg Oral Tablet - take 1 tablet by ORAL route every 12 hours for 10 days; 20 tablet. Zofran 4 mg Oral Tablet - take 1 tablet by ORAL route every 12 hours As needed; 20 tablet. - Medication Reconciliation Form, Thank You Letter, Antibiotic Education, Prescription Opioid Use form. - Follow up: Private Physician; When: 2 - 3 days; Reason: Recheck today's complaints, Continuance of care, Re-evaluation by your physician. Follow up: Hair Sanchez MD; When: 2 - 3 days; Reason: Recheck today's complaints, Continuance of care, Re-evaluation by your physician. - Problem is new. - Symptoms have improved. Signatures: Dispatcher [employer] Jose Guadalupe Burleson MD MD cha Vicente, Ronaldo, RN RN rv Corrections: (The following items were deleted from the chart) 14:32 14:24 Urine Test ordered. [facility] rv 16:28 16:23 05/03/2019 16:23 Discharged to Home. Impression: Type 2 diabetes mellitus; arturo Abdominal tenderness; Weakness. Condition is Stable. Forms are Medication Reconciliation Form, Thank You Letter, Antibiotic Education, Prescription Opioid Use. Follow up: Private Physician; When: 2 - 3 days; Reason: Recheck today's complaints, Continuance of care, Re-evaluation by your physician. Follow up: Hair Sanchez; When: 2 - 3 days; Reason: Recheck today's complaints, Continuance of care, Re-evaluation by your physician. Problem is new. Symptoms have improved. [facility] 17:18 16:28 05/03/2019 16:23 Discharged to Home. Impression: Type 2 diabetes mellitus; rv Abdominal tenderness; Weakness; Subluxation of unspecified lumbar vertebra - L5-S1; Spondylolysis, lumbar region; Low back pain. Condition is Stable. Discharge Instructions: Abdominal Pain, Adult, Type 2 Diabetes Mellitus, Diagnosis, Adult, Weakness, Abdominal Pain, Adult, Fxfd-he-Lxwl, Weakness, Ggzh-oi-Zfgd, Type 2 Diabetes Mellitus, Diagnosis, Adult, Jzug-de-Tvmj. Prescriptions for Bentyl 10 mg Oral Capsule - take 1 capsule by ORAL route every 6 hours As needed; 40 capsule, Pepcid 20 mg Oral Tablet - take 1 tablet by ORAL route every 12 hours for 10 days; 20 tablet, Zofran 4 mg Oral Tablet - take 1 tablet by ORAL route every 12 hours As needed; 20 tablet. and Forms are Medication Reconciliation Form, Thank You Letter, Antibiotic Education, Prescription Opioid Use. Follow up: Private Physician; When: 2 - 3 days; Reason: Recheck today's complaints, Continuance of care, Re-evaluation by your physician. Follow up: Hair Sanchez; When: 2 - 3 days; Reason: Recheck today's complaints, Continuance of care, Re-evaluation by your physician. Problem is new. Symptoms have improved. arturo
[2019-05-03 16:26] LABS: Urine Blood NEGATIVE (NEG); Urine Glucose NEGATIVE (NEG); Urine Protein NEGATIVE (NEG); Urine Specific Gravity 1.005 (1.005-1.030)
--- NOTE | 2019-05-03 20:40 | RAD REPORT ---
EXAM DESCRIPTION: CT HEAD W/O CONTRAST CLINICAL HISTORY: Altered mental status, stroke like symptoms. COMPARISON: None. TECHNIQUE: Axial 5 mm thick images of the head were obtained without contrast. Sagittal and coronal reconstruction images were generated and reviewed. This exam was performed according to our departmental dose-optimization program, which includes automated exposure control, adjustment of the mA and/or kV according to patient size and/or use of iterative reconstruction technique. FINDINGS: No intracranial hemorrhage is present. No mass, edema or shift of midline structures. No atrophy is seen. Ventricles are normal. No measurable chronic ischemic change. Mastoid air cells are clear. Air fluid level in the right maxillary sinus. IMPRESSION: 1. No hemorrhage or acute intracranial finding identifiable. 2. Right maxillary sinusitis.
[2019-05-03 21:19] VITALS: TEMP 98.6
[2019-05-03 21:24] VITALS: O2SAT 100
--- NOTE | 2019-05-03 21:24 | RAD REPORT ---
EXAM DESCRIPTION: Gisell Single View05/03/2019 7:20 pm CLINICAL HISTORY: cough COMPARISON: 2018 FINDINGS: The lungs appear clear of acute infiltrate. The heart is normal size IMPRESSION: No acute abnormalities displayed
[2019-05-03 21:27] VITALS: BP 119/85
--- NOTE | 2019-05-04 04:39 | EKG ---
Test Date: 2019-05-03 Test Time: 14:55:16 Nutrition Aides Teacher: DEE MEASUREMENT RESULTS: Intervals: Rate: 81 AL: 148 QRSD: 76 QT: 394 QTc: 457 [place]: P: 16 AL: 148 QRS: 14 T: 30 INTERPRETIVE STATEMENTS: Normal sinus rhythm Normal ECG Compared to ECG 03/21/2018 12:40:30 No significant changes Electronically Signed On 05-04-19 04:38:34 CDT by Homero Lorenzo
== END 2019-05-03 17:18 | disposition home or self-care (01) ==
LOC: ER 14:10
DX: R10.819 Abdominal tenderness, unspecified site (principal); M43.06 Spondylolysis, lumbar region; M54.5 Low back pain; M99.13 Subluxation complex (vertebral) of lumbar region; E11.9 Type 2 diabetes mellitus without complications; I10 Essential (primary) hypertension
CPT/HCPCS: 96361; 93005; 85025; 87086; 80048; 36415; 83735; 85610; 82962; 80076; 81003; 84484; 83880; 70450; 71045; 96374; 99284; J8597; J7030; J2405; 87088

== ENCOUNTER 2019-05-13 07:27 | Day surgery (SDC) | payer OTHER ==
[2019-05-13] MEDS ORDERED: Ringers Lactate 1,000 ML IV ONE (07:40)
[2019-05-13] MEDS ORDERED: PROPOFOL 200 MG/20 ML VIAL IV ONE (09:54)
[2019-05-13 13:08] VITALS: BP 115/62; TEMP 98.2; O2SAT 97
--- NOTE | 2019-05-13 20:22 | OP ---
Surgeon: Vishal Apodaca MD Procedure To Be Performed: Esophagogastroduodenoscopy. Performing Physician: Vishal Apodaca MD. Indications Of Procedure: Epigastric pain, right upper quadrant pain, nausea, dyspepsia, diarrhea. Plan For Anesthesia: Monitored anesthesia care. Complexity: Average. Technique: After obtaining informed consent from the patient and explaining risks and complications which include, but are not limited to bleeding, infection, perforation, and anesthesia complications, patient was placed in the left lateral position and sedation was given. From then on the scope was advanced to the mouth and carefully guided up until the 3rd portion of the duodenum. After the compl etion of examination, scope and equipment were withdrawn and procedure terminated in a safe manner. Findings: Esophagus; no gross lesion seen in the upper and mid esophagus, however, in the distal eso phagus, a very mild, narrowing seen which appears to be due to extrinsic compression. This did not p ose any difficulty for the passage of scope. The GE junction was at around 39 cm and this narrowing was at around 40 cm. Stomach; retroflexion of the fundus revealed and extended compression in the di stal esophagus which is due to a lap band that has been placed. It appears to have slipped more prox imal and now resides near the GE junction rather than in the proximal stomach. Remainder of the stom ach revealed mild patchy erythema, both antral and body biopsies taken. Duodenum; the bulb second po rtion appeared normal. In the third portion, a small diverticulum was seen. Small bowel biopsies ta maikel to rule out celiac disease. Complications: None. Tolerance To Anesthesia: Excellent. Postoperative Diagnoses: Misplaced lap band, gastritis, duodenal diverticulum. Plan: 1.Await pathology results. 2.Would recommend following up with Bariatric Surgery for further evaluation and assessment to see i f lab band needs to be addressed, colonoscopy for the bowel symptoms if not already scheduled. US/MODL Voice ID: [id number] Report ID: [id number]
== END 2019-05-13 11:10 | disposition home or self-care (01) ==
LOC: OR 07:27
PROVIDERS: ATTEND Internal Medicine Gastroenterology
PROC: 0DB68ZX Excision of Stomach, Via Natural or Artificial Opening Endoscopic, Diagnostic (ICD-10-PCS; 2019-05-13)
PROC: 0DB88ZX Excision of Small Intestine, Via Natural or Artificial Opening Endoscopic, Diagnostic (ICD-10-PCS; principal; 2019-05-13 09:00)
DX: T85.528A Displacement of other gastrointestinal prosthetic devices, implants and grafts, initial encounter (principal); K29.50 Unspecified chronic gastritis without bleeding; K57.10 Diverticulosis of small intestine without perforation or abscess without bleeding; K58.9 Irritable bowel syndrome, unspecified; K76.0 Fatty (change of) liver, not elsewhere classified; E11.9 Type 2 diabetes mellitus without complications; I10 Essential (primary) hypertension; E66.9 Obesity, unspecified; Z80.0 Family history of malignant neoplasm of digestive organs; Z83.3 Family history of diabetes mellitus; Z82.49 Family history of ischemic heart disease and other diseases of the circulatory system
CPT/HCPCS: 88312; 88305; 43239; J2704; J7120

== ENCOUNTER 2020-11-05 08:56 | Emergency (ER) | payer OTHER ==
[2020-11-05 09:10] LABS: Urine Blood Negative (Negative); Urine Glucose Negative (Negative); Urine Protein 2+ (Negative); Urine Specific Gravity >=1.030 (1.005-1.030); Urine pH 5.5 (5.0-7.0)
[2020-11-05 09:30] LABS: Absolute Lymphocytes (CBC) 2.1 K/uL (0.7-4.9); Basophils % 0.8 % (0-1.3); Hematocrit 45.1 % (36.0-45.0); Lymphocytes % 20.9 % (15.3-44.8); MPV 7.7 fL (7.6-11.3); RBC Red Blood Cell Count 4.91 M/uL (3.86-4.86)
[2020-11-05] MEDS ORDERED: NA CHLORIDE 0.9% 2,000 ML ONE (09:42)
[2020-11-05] MEDS ORDERED: ONDANSETRON 4 MG/2 ML VIAL ONE (09:42)
[2020-11-05 09:52] LABS: Albumin 4.1 g/dL (3.4-5.0); Bilirubin Direct 0.1 mg/dL (0-0.2); Bilirubin Total 0.3 mg/dL (0.2-1.0); Potassium 4.2 mmol/L (3.5-5.1); Protein, Total 8.6 g/dL (6.4-8.2)
[2020-11-05 10:32] LABS: Urine Bacteria 20-50 /HPF (<20); Urine Mucus HEAVY /HPF (NONE SEEN); Urine RBC <5 /HPF (NONE SEEN)
--- NOTE | 2020-11-05 11:00 | RAD REPORT ---
EXAM DESCRIPTION: CT - Abdomen Pelvis W Contrast - 11/05/2020 10:31 am CLINICAL HISTORY: Abdominal pain COMPARISON: 2019 TECHNIQUE: Computed axial tomography of the abdomen pelvis was obtained. 100 cc Isovue-300 was admin istered intravenously. Oral contrast was not requested which limits evaluation of bowel. All CT scans are performed using dose optimization technique as appropriate and may include automated exposure control or mA/KV adjustment according to patient size. FINDINGS: Fatty liver. A band is present within the stomach. Mild anterior subluxation L5 on S1. Spondylolysis L5. Spleen, pancreas, adrenal and kidneys appear unremarkable. There is no evidence of diverticulitis. Small umbilical hernia. Hysterectomy IMPRESSION: Fatty liver
[2020-11-05] MEDS ORDERED: PROMETHAZINE INJ 25 MG/ML AMP ONE (11:46)
[2020-11-05] MEDS ORDERED: DICYCLOMINE HCL 10 MG CAP ONE (11:46)
[2020-11-05 11:51] LABS: Arterial Blood Carboxyhemoglob 0.8 % (0-1.5); Blood Gas Oxyhemoglobin 95.7 % (94-97); Blood O2 Saturation 97.5 % (92-98.5)
[2020-11-05] MEDS ORDERED: NA CHLORIDE 0.9% 1,000 ML ONE (12:10)
--- NOTE | 2020-11-05 14:31 | EDPHYS ---
Physician Documentation [facility] Name: Lorena Villarreal Age: 50 yrs Sex: Female : 1970 Arrival Date: 11/05/2020 Time: 09:00 Bed 15 Private MD: ED Physician Leif Roe HPI: 11/05 10:06 This 50 yrs old Female presents to ER via Ambulatory with complaints of jr8 Abdominal Pain, Nausea/Vomiting. 10:06 The patient presents with abdominal pain that is diffuse. The symptoms do not radiate. jr8 Associated signs and symptoms: Pertinent positives: nausea and vomiting. The symptoms are described as crampy, stabbing. Modifying factors: The symptoms are alleviated by nothing, the symptoms are aggravated by food. Severity of pain: At its worst the pain was moderate in the emergency department the pain is unchanged. The patient has not experienced similar symptoms in the past. The patient has not recently seen a physician. 10:06 Onset: The symptoms/episode began/occurred 1 day(s) ago. 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 - Social history:: Smoking status: Patient denies any tobacco usage or history of. ROS: 10:06 Eyes: Negative for injury, pain, redness, and discharge, ENT: Negative for injury, jr8 pain, and discharge, Neck: Negative for injury, pain, and swelling, Cardiovascular: Negative for chest pain, palpitations, and edema, Respiratory: Negative for shortness of breath, cough, wheezing, and pleuritic chest pain, Back: Negative for injury and pain, MS/Extremity: Negative for injury and deformity, Skin: Negative for injury, rash, and discoloration, Neuro: Negative for headache, weakness, numbness, tingling, and seizure. 10:06 Abdomen/GI: Positive for abdominal pain, nausea and vomiting, constipation, abdominal cramps, Negative for hematemesis, rectal pain, rectal bleeding. Exam: 10:06 Respiratory: Lungs have equal breath sounds bilaterally, clear to auscultation and jr8 percussion. No rales, rhonchi or wheezes noted. No increased work of breathing, no retractions or nasal flaring. Back: No spinal tenderness. No costovertebral tenderness. Full range of motion. Skin: Warm, dry with normal turgor. Normal color with no rashes, no lesions, and no evidence of cellulitis. MS/ Extremity: Pulses equal, no cyanosis. Neurovascular intact. Full, normal range of motion. Neuro: Awake and alert, GCS 15, oriented to person, place, time, and situation. Cranial nerves II-XII grossly intact. Motor strength 5/5 in all extremities. Sensory grossly intact. Cerebellar exam normal. Normal gait. 10:06 Eyes: Pupils equal round and reactive to light, extra-ocular motions intact. Lids and lashes normal. Conjunctiva and sclera are non-icteric and not injected. Cornea within normal limits. Periorbital areas with no swelling, redness, or edema. ENT: Nares patent. No nasal discharge, no septal abnormalities noted. Tympanic membranes are normal and external auditory canals are clear. Oropharynx with no redness, swelling, or masses, exudates, or evidence of obstruction, uvula midline. Mucous membranes moist. 10:06 Constitutional: The patient appears alert, awake, uncomfortable. 10:06 Cardiovascular: Rate: tachycardic, Rhythm: regular, Pulses: Pulses are 2+ in bilateral radial, brachial, femoral, popliteal, posterior tibial and and dorsalis pedis arteries.. Heart sounds: normal, normal S1and S2, no S3 or S4, no murmur, no rub, no gallop, Edema: is not appreciated, JVD: is not appreciated. 10:06 Abdomen/GI: Inspection: abdomen appears normal, Bowel sounds: active, all quadrants, Palpation: soft, in all quadrants, moderate abdominal tenderness, in the umbilical area and left lower quadrant, rebound tenderness, is not appreciated, voluntary guarding, is not appreciated, involuntary guarding, is not appreciated, no appreciated organomegaly, Indicators: McBurney's point is not tender, Forte's sign is negative, Rovsing's sign is negative, Liver: tenderness, is not appreciated. Vital Signs: 09:10 BP 120 / 86; Pulse 128; Resp 24 S; Temp 98.3(O); Pulse Ox 99% on R/A; Weight 92.99 kg aa5 (R); Height 5 ft. 6 in. (167.64 cm) (R); Pain 5/10; 09:35 BP 120 / 86; Pulse 105; Resp 20 S; Pulse Ox 99% on R/A; jd3 10:37 BP 112 / 79; Pulse 96; Resp 16 S; Pulse Ox 100% on R/A; jd3 11:44 BP 120 / 77; Pulse 83; Resp 17 S; Pulse Ox 100% on R/A; jd3 12:57 BP 142 / 63; Pulse 75; Resp 17 S; Pulse Ox 100% on R/A; jd3 13:38 BP 113 / 73; Pulse 83; Resp 15 S; Pulse Ox 98% on R/A; jd3 15:18 BP 119 / 81; Pulse 89; Resp 16 S; Pulse Ox 100% on R/A; ca1 09:10 Body Mass Index 33.09 (92.99 kg, 167.64 cm) aa5 MDM: 09:07 Patient medically screened. [facility] 14:27 Data reviewed: vital signs, nurses notes, lab test result(s), radiologic studies, CT jr8 scan. Data interpreted: Pulse oximetry: on room air is 98 %. Interpretation: normal. Counseling: I had a detailed discussion with the patient and/or guardian regarding: the historical points, exam findings, and any diagnostic results supporting the discharge/admit diagnosis, lab results, radiology results, the need for outpatient follow up, a family practitioner, to return to the emergency department if symptoms worsen or persist or if there are any questions or concerns that arise at home. Response to treatment: the patient's symptoms have markedly improved after treatment, patient is well hydrated. ED course: Patient feeling markedly better. Lactate significantly decreased post fluid resuscitation. No pain at this time. Able to tolerate fluids. Close return precautions given. Patient good with this and will come back if necessary . 11/05 09:08 Order name: Basic Metabolic Panel 8 11/05 09:08 Order name: CBC with Diff jr8 11/05 09:08 Order name: Hepatic Function; Complete Time: 09:57 jr8 11/05 09:08 Order name: Lipase; Complete Time: 09:57 jr8 11/05 09:08 Order name: Basic Metabolic Panel; Complete Time: 09:57 EDMS 11/05 09:08 Order name: CBC with Automated Diff; Complete Time: 09:40 EDMS 11/05 09:10 Order name: Urine Dipstick-Ancillary; Complete Time: 09:21 EDMS 11/05 09:19 Order name: Lactate [facility] 11/05 09:20 Order name: Lactate; Complete Time: 11:20 EDMS 11/05 09:20 Order name: Urine Microscopic Only; Complete Time: 10:40 8 11/05 10:33 Order name: Urine Culture EDMS 11/05 11:27 Order name: ABG; Complete Time: 12:15 jr8 11/05 13:09 Order name: Lactate; Complete Time: 14:09 8 11/05 09:08 Order name: IV Saline Lock; Complete Time: 09:19 8 11/05 09:08 Order name: Labs collected and sent; Complete Time: 09:19 8 11/05 09:20 Order name: Urine Dipstick-Ancillary (obtain specimen); Complete Time: 09:22 8 11/05 09:58 Order name: CT Abd/Pelvis - IV Contrast Only; Complete Time: 11:06 [facility] Administered Medications: 09:32 Drug: Zofran (Ondansetron) 4 mg Route: IVP; Site: right antecubital; jd3 10:30 Follow up: Response: No adverse reaction jd3 09:32 Drug: NS 0.9% 1000 ml Route: IV; Rate: 1000 ml; Site: right antecubital; jd3 10:30 Follow up: Response: No adverse reaction; IV Status: Completed infusion; IV Intake: jd3 1000ml 09:33 Drug: NS 0.9% 1000 ml Route: IV; Rate: 1000 ml; Site: right antecubital; jd3 18:18 Follow up: Response: No adverse reaction; IV Status: Completed infusion jd3 11:50 Drug: Promethazine 12.5 mg Route: IVP; Site: right antecubital; jd3 12:50 Follow up: Response: No adverse reaction jd3 11:50 Drug: Bentyl (dicyclomine) 20 mg Route: PO; jd3 12:50 Follow up: Response: No adverse reaction jd3 11:57 Drug: NS 0.9% 1000 ml Route: IV; Rate: 125 ml/hr; Site: right antecubital; jd3 12:50 Follow up: Response: No adverse reaction; IV Status: Completed infusion jd3 Disposition: 11/05/20 14:30 Discharged to Home. Impression: Acute Enteritis, Vomiting, Dehydration. - Condition is Stable. - Discharge Instructions: Nausea and Vomiting, Adult, Dehydration, Adult, [id number]. - Prescriptions for Bentyl 20 mg Oral Tablet - take 1 tablet by ORAL route every 6 hours As needed; 20 tablet. promethazine 25 mg Oral Tablet - take 1 tablet by ORAL route every 6 hours As needed; 20 tablet. - Medication Reconciliation Form, Thank You Letter, Antibiotic Education, Prescription Opioid Use form. - Follow up: Private Physician; When: 2 - 3 days; Reason: Recheck today's complaints, Continuance of care, Re-evaluation by your physician. - Problem is new. - Symptoms have improved. Addendum: 11/07/2020 07:16 Co-signature as Attending Physician, Leif Roe MD I agree with the assessment and k dr plan of care. Signatures: Dispatcher [employer] [facility] Leif Roe MD MD kdr Alyson Davis RN RN aa5 Castro Winslow PA PA jr8 Scott Douglas RN RN jd3 Neyda Clemons RN RN ca1 Corrections: (The following items were deleted from the chart) 11/05 11:05 09:21 LACTATE+C.LAB.BRZ ordered. [facility] 15:18 14:30 11/05/2020 14:30 Discharged to Home. Impression: Acute Enteritis; Vomiting; ca1 Dehydration. Condition is Stable. Forms are Medication Reconciliation Form, Thank You Letter, Antibiotic Education, Prescription Opioid Use. Follow up: Private Physician; When: 2 - 3 days; Reason: Recheck today's complaints, Continuance of care, Re-evaluation by your physician. Problem is new. Symptoms have improved. jr8
--- NOTE | 2020-11-05 14:31 | ER ---
Nurse's Notes [facility] Name: Lorena Villarreal Age: 50 yrs Sex: Female : 1970 Arrival Date: 11/05/2020 Time: 09:00 Bed 15 Private MD: Diagnosis: Acute Enteritis;Vomiting;Dehydration Presentation: 11/05 09:00 Chief complaint: Chief complaint: Patient states: pain to LLQ radiating to umbilical aa5 area and vomited 4 times this morning. Pt also reports constipation. 09:10 Coronavirus screen: nausea, vomiting. Ebola Screen: Patient negative for fever greater aa5 than or equal to 101.5 degrees Fahrenheit, and additional compatible Ebola Virus Disease symptoms. Initial Sepsis Screen: Does the patient meet any 2 criteria? RR > 20 per min. HR > 90 bpm. Does the patient have a suspected source of infection? No. Patient's initial sepsis screen is negative. Risk Assessment: Do you want to hurt yourself or someone else? Patient reports no desire to harm self or others. Onset of symptoms was October 2020. 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 - Social history:: Smoking status: Patient denies any tobacco usage or history of. Screenin:35 Abuse screen: Denies threats or abuse. Nutritional screening: No deficits noted. jd3 Tuberculosis screening: No symptoms or risk factors identified. Fall Risk Ambulatory Aid- None/Bed Rest/Nurse Assist (0 pts). Gait- Normal/Bed Rest/Wheelchair (0 pts) Mental Status- Oriented to own ability (0 pts). Total Ocampo Fall Scale indicates No Risk (0-24 pts). Assessment: 09:33 General: Appears in no apparent distress. uncomfortable, Behavior is calm, cooperative, jd3 appropriate for age. Pain: Complains of pain in abdomen Quality of pain is described as sharp. Neuro: Level of Consciousness is awake, alert, obeys commands, Oriented to person, place, time, situation. Cardiovascular: Denies chest pain, Capillary refill < 3 seconds. Respiratory: Airway is patent Respiratory effort is even, unlabored, Respiratory pattern is regular, symmetrical, Denies cough, shortness of breath. GI: Abdomen is non-distended, Abdomen is tender to palpation X 4 quads. Guarding noted X 4 quads. Reports lower abdominal pain, upper abdominal pain, constipation, nausea, vomiting. : No signs and/or symptoms were reported regarding the genitourinary system. EENT: No signs and/or symptoms were reported regarding the EENT system. Derm: Skin is intact, Skin is diaphoretic, Skin is normal, Skin temperature is warm. Musculoskeletal: Circulation, motion, and sensation intact. Range of motion: intact in all extremities. 10:37 Reassessment: Patient appears in no apparent distress at this time. Patient and/or jd3 family updated on plan of care and expected duration. Pain level reassessed. Patient is alert, oriented x 3, equal unlabored respirations, skin warm/dry/pink. reports feeling a little better, verbal reassurance given. 11:43 Reassessment: Patient appears in no apparent distress at this time. Patient and/or jd3 family updated on plan of care and expected duration. Pain level reassessed. Patient is alert, oriented x 3, equal unlabored respirations, skin warm/dry/pink. Patient states feeling better. 13:38 Reassessment: Patient appears in no apparent distress at this time. Patient and/or jd3 family updated on plan of care and expected duration. Pain level reassessed. Patient is alert, oriented x 3, equal unlabored respirations, skin warm/dry/pink. Patient states feeling better. 15:15 Reassessment: Patient appears in no apparent distress at this time. Patient is alert, ca1 oriented x 3, equal unlabored respirations, skin warm/dry/pink. Vital Signs: 09:10 BP 120 / 86; Pulse 128; Resp 24 S; Temp 98.3(O); Pulse Ox 99% on R/A; Weight 92.99 kg aa5 (R); Height 5 ft. 6 in. (167.64 cm) (R); Pain 5/10; 09:35 BP 120 / 86; Pulse 105; Resp 20 S; Pulse Ox 99% on R/A; jd3 10:37 BP 112 / 79; Pulse 96; Resp 16 S; Pulse Ox 100% on R/A; jd3 11:44 BP 120 / 77; Pulse 83; Resp 17 S; Pulse Ox 100% on R/A; jd3 12:57 BP 142 / 63; Pulse 75; Resp 17 S; Pulse Ox 100% on R/A; jd3 13:38 BP 113 / 73; Pulse 83; Resp 15 S; Pulse Ox 98% on R/A; jd3 15:18 BP 119 / 81; Pulse 89; Resp 16 S; Pulse Ox 100% on R/A; ca1 09:10 Body Mass Index 33.09 (92.99 kg, 167.64 cm) aa5 ED Course: 09:00 Patient arrived in ED. jd3 09:00 Arm band placed on. aa5 09:07 Castro Winslow PA is PHCP. jr8 09:07 Leif Roe MD is Attending Physician. jr8 09:12 Triage completed. aa5 09:18 Scott Douglas RN is Primary Nurse. jd3 09:22 Inserted saline lock: 20 gauge in right antecubital area, using aseptic technique. jd3 Blood collected. 09:22 Urine collected: clean catch specimen, yesika colored. 5 09:35 Patient has correct armband on for positive identification. Placed in gown. Bed in low jd3 position. Call light in reach. Side rails up X 1. Pulse ox on. NIBP on. 10:32 CT Abd/Pelvis - IV Contrast Only In Process Unspecified. EDMS 10:49 Urine Culture Sent. 5 10:50 Lactate Sent. 5 10:50 Basic Metabolic Panel Sent. 5 10:50 CBC with Diff Sent. 5 11:44 No provider procedures requiring assistance completed. jd3 13:46 Notified Nurse Practitioner and/or Physician Coding Team Lead of a critical lab result(s), 2.8 ca1 Notified primary nurse of. 15:17 IV discontinued, intact, bleeding controlled, No redness/swelling at site. Pressure ca1 dressing applied. Administered Medications: 09:32 Drug: Zofran (Ondansetron) 4 mg Route: IVP; Site: right antecubital; jd3 10:30 Follow up: Response: No adverse reaction jd3 09:32 Drug: NS 0.9% 1000 ml Route: IV; Rate: 1000 ml; Site: right antecubital; jd3 10:30 Follow up: Response: No adverse reaction; IV Status: Completed infusion; IV Intake: jd3 1000ml 09:33 Drug: NS 0.9% 1000 ml Route: IV; Rate: 1000 ml; Site: right antecubital; jd3 18:18 Follow up: Response: No adverse reaction; IV Status: Completed infusion jd3 11:50 Drug: Promethazine 12.5 mg Route: IVP; Site: right antecubital; jd3 12:50 Follow up: Response: No adverse reaction jd3 11:50 Drug: Bentyl (dicyclomine) 20 mg Route: PO; jd3 12:50 Follow up: Response: No adverse reaction jd3 11:57 Drug: NS 0.9% 1000 ml Route: IV; Rate: 125 ml/hr; Site: right antecubital; jd3 12:50 Follow up: Response: No adverse reaction; IV Status: Completed infusion jd3 Intake: 10:30 IV: 1000ml; Total: 1000ml. jd3 Outcome: 14:30 Discharge ordered by MD. benitez 15:17 Discharged to home ambulatory. ca1 15:17 Condition: stable 15:17 Discharge instructions given to patient, Instructed on discharge instructions, follow up and referral plans. no drinking with medication, no driving heavy equipment, medication usage, Demonstrated understanding of instructions, follow-up care, medications, Prescriptions given X 2. 15:18 Patient left the ED. ca1 Signatures: Dispatcher [employer] EDAlyson Arango RN RN Castro Robertson PA PA jr8 Martinez, Maria mh5 Davies, Jonathon, RN RN jd3 Acob, Cheryl, RN RN ca1 Corrections: (The following items were deleted from the chart) 09:12 09:00 Chief complaint: doroteo sadler
== END 2020-11-05 15:18 | disposition home or self-care (01) ==
LOC: ER 08:56
DX: E86.0 Dehydration (principal); K52.9 Noninfective gastroenteritis and colitis, unspecified; I10 Essential (primary) hypertension; E11.9 Type 2 diabetes mellitus without complications
CPT/HCPCS: 96361; 87088; 85025; 87086; 80048; 36415; 80076; 83605 ×2; 83690; 74177; 82805; 96375; 96374; 99284; Q9967; J2550; J7030 ×2; J2405; 81003; 81015

== ENCOUNTER 2020-12-14 10:52 | Day surgery (SDC) | payer OTHER ==
--- NOTE | 2020-12-11 11:19 | RAD REPORT ---
EXAM DESCRIPTION: RAD - Chest Pa And Lat (2 Views) - 12/11/2020 11:11 am CLINICAL HISTORY: left heart cath Chest pain. COMPARISON: Chest Single View dated 05/03/2019; Chest Single View dated 03/10/2018; CHEST SINGLE VIEW dated 07/25/2009 FINDINGS: The lungs are clear. The heart is normal in size. No displaced fractures. IMPRESSION: No acute or concerning finding suspected.
[2020-12-11 12:24] LABS: Potassium 4.1 mmol/L (3.5-5.1)
[2020-12-11 12:31] LABS: Protime INR 0.97
[2020-12-11 12:36] LABS: Absolute Lymphocytes (CBC) 2.4 K/uL (0.7-4.9); Basophils % 0.8 % (0-1.3); MPV 7.6 fL (7.6-11.3); RBC Red Blood Cell Count 4.72 M/uL (3.86-4.86)
[~2020-12-14 10:52] MED LIST: HEPA 1000U/500MLS 2,000 UNIT/1,000 ML BAG IV ONE
[2020-12-14] MEDS ORDERED: NA CHLORIDE 0.9% 500 ML ONE (11:35)
[2020-12-14] MEDS ORDERED: HEPARIN 5000 UNIT/ML 1 ML VIAL ONE (12:17)
[2020-12-14] MEDS ORDERED: MIDAZOLAM HCL 2 MG/2 ML INJ ONE (12:17)
[2020-12-14] MEDS ORDERED: FENTANYL CITR 100 MCG/2 ML ONE (12:18)
[2020-12-14] MEDS ORDERED: VERAPAMIL HCL 10 MG/4 ML VIAL IV ONE (12:18)
[2020-12-14] MEDS ORDERED: NITROGLYCERIN 100 MCG/ML SYR (for cath lab use only) IV ONE (12:18)
[2020-12-14] MEDS ORDERED: ATROPINE SULF 1 MG/10 ML SYR IV ONE (12:18)
[2020-12-14] MEDS ORDERED: NITROGLYCERIN/D5W 25 MG/250 ML BTL IV ONE (12:18)
[2020-12-14] MEDS ORDERED: ONDANSETRON 4 MG/2 ML VIAL ONE (12:21)
[2020-12-14 12:51] VITALS: TEMP 97
[2020-12-14 14:31] VITALS: BP 114/81; O2SAT 97
--- NOTE | 2020-12-14 22:58 | OP ---
Date of Procedure: 12/14/2020 Surgeon: STEPHANIE ROSENTHAL Procedure Performed: Selective coronary angiogram. Indication: Chest pain with abnormal stress test. Access: Right radial artery 6-Qatari, closed with TR band. Complications: None. Bleeding: Less than 10 mL. Description Of Procedure: After risks, benefits, and alternatives were explained, the patient agreed to the procedure and signed informed consent. Patient was brought in the cardiac catheterization la boratory, prepped and draped in usual sterile fashion, and we accessed right radial artery using pedi atric micropuncture kit, placed a 6-Qatari slender sheath and then took 5-Qatari [place] 4.0 into the a ortic root over a J-wire, engaged left main and right coronary artery, took standard views. Then rem dashawn the catheter and sheath and placed TR band with good hemostasis. Findings: 1.Left main: Large and normal. 2.LAD: Moderate-sized vessel and is normal. 3.Left circumflex: Moderate-sized vessel, is normal with all the branches are being normal. 4.RCA: Dominant vessel and normal. Conclusion: Normal coronary arteries and noncardiac chest pain. Recommendation: Evaluate for other causes of chest pain. Follow up in the office in 4 weeks post pr ocedure. /ANGELIQUE Voice ID: [id number] Report ID: [id number]
== END 2020-12-14 14:40 | disposition home or self-care (01) ==
LOC: CCL 10:52
PROVIDERS: ATTEND Internal Medicine
DX: R07.89 Other chest pain (principal); I10 Essential (primary) hypertension; E11.9 Type 2 diabetes mellitus without complications; Z20.822 Contact with and (suspected) exposure to COVID-19; Z82.49 Family history of ischemic heart disease and other diseases of the circulatory system
CPT/HCPCS: 85025; 80048; 36415; 85610; 82947; 85730; 71046; 93454; U0003; C1893; J1644 ×2; J2250; J3010; J7040; J2405

== ENCOUNTER 2022-09-18 13:30 | Emergency (ER) | payer OTHER ==
[2022-09-18] MEDS ORDERED: KETOROLAC 30 MG/ML INJ ONE (14:01)
[2022-09-18] MEDS ORDERED: NA CHLORIDE 0.9% 1,000 ML ONE (14:02)
[2022-09-18] MEDS ORDERED: ONDANSETRON 4 MG/2 ML VIAL ONE ×2 (14:02→15:29)
[2022-09-18] MEDS ORDERED: FAMOTIDINE 20 MG/2 ML VIAL IV ONE (14:02)
[2022-09-18 14:09] LABS: Absolute Lymphocytes (CBC) 2.4 K/uL (0.7-4.9); Hematocrit 45.8 % (36.0-45.0); MCV 90.4 fL (80-100); MPV 7.4 fL (7.6-11.3); RBC Red Blood Cell Count 5.06 M/uL (3.86-4.86)
[2022-09-18 14:26] LABS: Albumin 4.1 g/dL (3.4-5.0); Bilirubin Total 0.4 mg/dL (0.2-1.0); Potassium 4.1 mmol/L (3.5-5.1); Protein, Total 8.4 g/dL (6.4-8.2)
--- NOTE | 2022-09-18 15:40 | RAD REPORT ---
EXAM DESCRIPTION: US - Abdomen Exam Limited - 09/18/2022 2:50 pm CLINICAL HISTORY: Abdominal pain. COMPARISON: 2017 FINDINGS: The gallbladder wall is not thickened. A gallstone is not seen. The biliary tree is normal caliber. Fatty liver IMPRESSION: Unremarkable gallbladder ultrasound.
--- NOTE | 2022-09-18 16:37 | RAD REPORT ---
EXAM DESCRIPTION: CT - Abdomen Pelvis W Contrast - 09/18/2022 4:16 pm CLINICAL HISTORY: Abdominal pain COMPARISON: 2020 TECHNIQUE: Computed axial tomography of the abdomen pelvis was obtained. 100 cc Isovue-300 was admin istered intravenously. Oral contrast was not requested which limits evaluation of bowel and appendix All CT scans are performed using dose optimization technique as appropriate and may include automated exposure control or mA/KV adjustment according to patient size. FINDINGS: Fatty liver. Left lobe is prominent A band is present within the stomach. Mild anterior subluxation L5 on S1. Spondylolysis L5. Spleen, pancreas, adrenal and kidneys appear unremarkable. There is no evidence of diverticulitis. Small umbilical hernia. Hysterectomy IMPRESSION: No acute abnormality is displayed.
--- NOTE | 2022-09-18 16:44 | EDPHYS ---
Physician Documentation [facility] Name: Lorena Villarreal Age: 51 yrs Sex: Female : 1970 Arrival Date: 09/18/2022 Time: 13:33 Bed 4 Private MD: ED Physician Leif Roe HPI: 09/18 14:40 This 51 yrs old Female presents to ER via Ambulatory with complaints of fast heart rate.kb 14:40 The patient presents to the emergency department with nausea, vomiting, diarrhea, kb abdominal pain. Onset: The symptoms/episode began/occurred 5 day(s) ago. Possible causes: unknown. The symptoms are aggravated by nothing. The symptoms are alleviated by nothing. Associated signs and symptoms: Pertinent positives: abdominal pain, diarrhea, nausea, vomiting. Severity of symptoms: At their worst the symptoms were moderate in the emergency department the symptoms are unchanged. The patient has not experienced similar symptoms in the past. The patient has not recently seen a physician. 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 - Social history:: Smoking status: Patient denies any tobacco usage or history of. ROS: 14:40 Constitutional: Negative for fever, chills, and weight loss. kb 14:40 Cardiovascular: Positive for palpitations. 14:40 Abdomen/GI: Positive for abdominal pain, nausea, vomiting, and diarrhea. 14:40 Neuro: Positive for dizziness. 14:40 All other systems are negative. Exam: 14:03 Constitutional: This is a well developed, well nourished patient who is awake, alert, kb and in no acute distress. Head/Face: Normocephalic, atraumatic. ENT: Moist Mucous membranes Cardiovascular: Regular rate and rhythm with a normal S1 and S2. No gallops, murmurs, or rubs. No pulse deficits. Respiratory: Respirations even and unlabored. No increased work of breathing. Talking in full sentences Skin: Warm, dry with normal turgor. Normal color. MS/ Extremity: Pulses equal, no cyanosis. Neurovascular intact. Full, normal range of motion. Neuro: Awake and alert, GCS 15, oriented to person, place, time, and situation. Moves all extremities. Normal gait. 14:03 Abdomen/GI: Inspection: abdomen appears normal, Bowel sounds: normal, Palpation: soft, in all quadrants, mild abdominal tenderness, in the left lower quadrant, moderate abdominal tenderness, in the right upper quadrant. 14:19 ECG was reviewed by the Attending Physician. kb Vital Signs: 13:34 BP 118 / 89; Pulse 128; Resp 18 S; Temp 97.1(TE); Pulse Ox 100% on R/A; Weight 97.98 kg aa5 (R); Height 5 ft. 4 in. (162.56 cm) (R); 14:04 BP 120 / 90 Supine; Pulse 93; ll1 14:06 BP 127 / 87 Sitting; Pulse 99; Resp 18; ll1 14:08 BP 120 / 93 Standing; Pulse 110; Pain 3/10; ll1 15:29 BP 117 / 82; Pulse 73; Resp 17; ll1 16:37 BP 121 / 78; Pulse 76; Pulse Ox 99% on R/A; hb 13:34 Body Mass Index 37.08 (97.98 kg, 162.56 cm) aa5 MDM: 13:41 Patient medically screened. kb 14:43 Differential diagnosis: Nonspecific abd pain, cholecystitis, viral gastroenteritis, kb Cholelithiasis. Data reviewed: vital signs, nurses notes. ED course: Patient is a 51-year-old female who presents for nausea, vomiting and diarrhea that started 5 days ago. States diarrhea resolved yesterday, but still unable to tolerate anything by mouth. States she started having dizziness and palpitations (racing heart) today. Reports heart rate into the 150s prior to arrival. On exam patient has moderate right upper quadrant tenderness and mild left lower quadrant tenderness. Will obtain serum labs, orthostatics, ultrasound to rule out cholelithiasis/cholecystitis.. 16:42 Counseling: I had a detailed discussion with the patient and/or guardian regarding: the kb historical points, exam findings, and any diagnostic results supporting the discharge/admit diagnosis, lab results, radiology results, the need for outpatient follow up, a family practitioner, a court commissioner, to return to the emergency department if symptoms worsen or persist or if there are any questions or concerns that arise at home. Response to treatment: the patient's symptoms have markedly improved after treatment. 09/18 13:46 Order name: CBC with Diff kb 09/18 13:46 Order name: CMP kb 09/18 13:46 Order name: Lipase kb 09/18 14:15 Order name: CBC with Automated Diff; Complete Time: 14:19 EDMS 09/18 14:26 Order name: Comprehensive Metabolic Panel; Complete Time: 14:27 EDMS 09/18 14:26 Order name: Lipase; Complete Time: 14:27 EDMS 09/18 13:46 Order name: Abdomen Limited US kb 09/18 15:40 Order name: US; Complete Time: 15:41 EDMS 09/18 15:53 Order name: CT Abd/Pelvis - IV Contrast Only kb 09/18 16:38 Order name: CT; Complete Time: 16:39 EDMS 09/18 13:46 Order name: IV Saline Lock; Complete Time: 13:55 kb 09/18 13:46 Order name: Labs collected and sent; Complete Time: 13:55 kb 09/18 13:46 Order name: Orthostatics: obtain before administering fluids please; Complete Time: kb 14:00 EC: Rate is 100 beats/min. Rhythm is regular. QRS [place] is Normal. OR interval is normal at kb 134 msec. QRS interval is normal at 72 msec. QT interval is normal at 451 msec. Administered Medications: 14:12 Drug: NS 0.9% 1000 ml Route: IV; Rate: 1 bolus; Site: right antecubital; 1 15:28 Follow up: Response: No adverse reaction; IV Status: Completed infusion; IV Intake: ll1 1000ml 14:12 Drug: Pepcid (famotidine) 20 mg Route: IVP; Site: right antecubital; ll1 15:29 Follow up: Response: No adverse reaction 1 14:12 Drug: TORadol - (ketorolac) 15 mg {Note: rass 0, pain 3/10.} Route: IVP; Site: right ll1 antecubital; 15:29 Follow up: Response: No adverse reaction; Pain is decreased; RASS: Alert and Calm (0) [facility] 14:12 Drug: Zofran (Ondansetron) 4 mg Route: IVP; Site: right antecubital; ll1 15:29 Follow up: Response: No adverse reaction ll1 15:28 Drug: Zofran (Ondansetron) 4 mg Route: IVP; Site: right antecubital; ll1 17:03 Follow up: Response: No adverse reaction ll1 Disposition: 17:47 Co-signature as Attending Physician, Leif Roe MD I agree with the assessment and kdr plan of care. Disposition Summary: 09/18/22 16:43 Discharge Ordered Location: Home kb Condition: Stable kb Diagnosis - Nausea with vomiting, unspecified kb - Diarrhea, unspecified kb - Dehydration kb Followup: kb - With: Emergency Department - When: As needed - Reason: Worsening of condition Followup: kb - With: Private Physician - When: 2 - 3 days - Reason: Recheck today's complaints, Continuance of care, Re-evaluation by your physician Discharge Instructions: - Discharge Summary Sheet kb - Food Choices to Help Relieve Diarrhea, Adult kb - Viral Gastroenteritis, Adult, [id number] kb Forms: - Medication Reconciliation Form kb - Thank You Letter kb - Antibiotic Education kb - Prescription Opioid Use kb Prescriptions: - promethazine 25 mg Oral Tablet - take 1 tablet by ORAL route every 8 hours As needed; 20 tablet; Refills: 0, kb Product Selection Permitted - dicyclomine 20 mg Oral Tablet - take 1 tablet by ORAL route 4 times per day As needed; 20 tablet; Refills: 0, kb Product Selection Permitted Signatures: Dispatcher [employer] Radha Longo, JOVI CAVAZOS-Leif Malloy MD MD [facility] Alyson Davis RN RN aa5 Yulia Andino RN RN ll1 Corrections: (The following items were deleted from the chart) 13:37 13:33 Allergies: No Known Allergies; doroteo sadler
--- NOTE | 2022-09-18 16:44 | ER ---
Nurse's Notes 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 Pt reports nausea and diarrhea, reports vomiting today. Pt states "it all started with abdominal pain". Coronavirus screen: diarrhea, nausea, vomiting. Ebola Screen: Patient denies travel to an Ebola-affected area in the 21 days before illness onset. Initial Sepsis Screen: Does the patient meet any 2 criteria? HR > 90 bpm. Does the patient have a suspected source of infection? No. Patient's initial sepsis screen is negative. Risk Assessment: Do you want to hurt yourself or someone else? Patient reports no desire to harm self or others. Onset of symptoms was August 2022. 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 - Social history:: Smoking status: Patient denies any tobacco usage or history of. Screenin:14 [facility] ED Fall Risk Assessment (Adult) Score/Fall Risk Level 0 - 2 = Low Risk ll1 Oriented to surroundings, Maintained a safe environment, Educated pt \\T\\ family on fall prevention, incl call for assistance when getting out of bed, Hourly rounding (assess needs \\T\\ fall precautionary measures) done. Abuse screen: Denies threats or abuse. Nutritional screening: No deficits noted. Tuberculosis screening: No symptoms or risk factors identified. Assessment: 13:40 General: Appears uncomfortable, ill, Behavior is calm, cooperative, appropriate for ll1 age. Pain: Complains of pain in right upper quadrant Pain currently is 3 out of 10 on a pain scale. Quality of pain is described as aching. Neuro: Reports dizziness, weakness. Cardiovascular: Reports fatigue, lightheadedness, nausea, palpitations. Respiratory: Reports shortness of breath on exertion. GI: Reports upper abdominal pain, cramping, diarrhea, nausea, vomiting. 14:14 Reassessment: No changes from previously documented assessment. Patient and/or family ll1 updated on plan of care and expected duration. Pain level reassessed. Patient is alert, oriented x 3, equal unlabored respirations, skin warm/dry/pink. 16:37 Reassessment: Patient appears in no apparent distress at this time. Patient is alert, hb oriented x 3, equal unlabored respirations, skin warm/dry/pink. 17:03 Reassessment: No changes from previously documented assessment. Patient and/or family ll1 updated on plan of care and expected duration. Pain level reassessed. Patient is alert, oriented x 3, equal unlabored respirations, skin warm/dry/pink. Vital Signs: 13:34 BP 118 / 89; Pulse 128; Resp 18 S; Temp 97.1(TE); Pulse Ox 100% on R/A; Weight 97.98 kg aa5 (R); Height 5 ft. 4 in. (162.56 cm) (R); 14:04 BP 120 / 90 Supine; Pulse 93; ll1 14:06 BP 127 / 87 Sitting; Pulse 99; Resp 18; ll1 14:08 BP 120 / 93 Standing; Pulse 110; Pain 3/10; ll1 15:29 BP 117 / 82; Pulse 73; Resp 17; ll1 16:37 BP 121 / 78; Pulse 76; Pulse Ox 99% on R/A; hb 13:34 Body Mass Index 37.08 (97.98 kg, 162.56 cm) aa5 ED Course: 13:33 Patient arrived in ED. am2 13:34 Arm band placed on. aa5 13:36 Triage completed. aa5 13:38 Radha Kraus FNP-C [facility] kb 13:38 Leif Roe MD is Attending Physician. kb 13:39 Yulia Andino RN is Primary Nurse. ll1 13:39 Patient placed in an exam room, on a stretcher. ll1 13:42 Patient has correct armband on for positive identification. Placed in gown. Bed in low mm9 position. Call light in reach. Side rails up X 1. Warm blanket given. Client placed on continuous cardiac and pulse oximetry monitoring. NIBP monitoring applied. vending machine mechanic on. Pulse ox on. NIBP on. 14:00 CBC with Diff Sent. mm9 14:00 CMP Sent. mm9 14:00 Lipase Sent. mm9 14:00 Initial lab(s) drawn, by me, sent to lab. EKG done, by ED staff, reviewed by Radha ESPANA. Inserted saline lock: 22 gauge in right antecubital area, using aseptic technique. Blood collected. 17:03 No provider procedures requiring assistance completed. IV discontinued, intact, ll1 bleeding controlled, No redness/swelling at site. Pressure dressing applied. Administered Medications: 14:12 Drug: NS 0.9% 1000 ml Route: IV; Rate: 1 bolus; Site: right antecubital; ll1 15:28 Follow up: Response: No adverse reaction; IV Status: Completed infusion; IV Intake: ll1 1000ml 14:12 Drug: Pepcid (famotidine) 20 mg Route: IVP; Site: right antecubital; ll1 15:29 Follow up: Response: No adverse reaction ll1 14:12 Drug: TORadol - (ketorolac) 15 mg {Note: rass 0, pain 3/10.} Route: IVP; Site: right ll1 antecubital; 15:29 Follow up: Response: No adverse reaction; Pain is decreased; RASS: Alert and Calm (0) ll1 14:12 Drug: Zofran (Ondansetron) 4 mg Route: IVP; Site: right antecubital; ll1 15:29 Follow up: Response: No adverse reaction ll1 15:28 Drug: Zofran (Ondansetron) 4 mg Route: IVP; Site: right antecubital; ll1 17:03 Follow up: Response: No adverse reaction ll1 Medication: 14:14 VIS not applicable for this client. ll1 Intake: 15:28 IV: 1000ml; Total: 1000ml. ll1 Outcome: 16:43 Discharge ordered by MD. davis 17:03 Discharged to home ambulatory. ll1 17:03 Condition: stable 17:03 Discharge instructions given to patient, Instructed on discharge instructions, follow up and referral plans. medication usage, Demonstrated understanding of instructions, follow-up care, medications, Prescriptions given X 2. 17:04 Patient left the ED. ll1 Signatures: Radha Kraus, CONTRACT MANAGEMENT SPECIALIST-C CONTRACT MANAGEMENT SPECIALIST-Alyson Oreilly, RN RN aa5 Faiza Magallon RN RN Raya Carrasquillo am2 Yulia Andino RN RN ll1 Tessy Cai mm9 Corrections: (The following items were deleted from the chart) 13:37 13:33 Allergies: No Known Allergies; aa5 aa5 16:38 16:37 Reassessment: Patient appears in no apparent distress at this time. Patient hb and/or family updated on plan of care and expected duration. Pain level reassessed. hb
[2022-09-18 17:38] VITALS: TEMP 97.1
[2022-09-18 17:43] VITALS: BP 121/78; O2SAT 99
--- NOTE | 2022-09-19 12:37 | EKG ---
Test Date: 2022-09-18 Test Time: 13:47:52 Crossbow Maker: MEGHANA MEASUREMENT RESULTS: Intervals: Rate: 100 AK: 134 QRSD: 72 QT: 350 QTc: 451 Adger: P: 33 AK: 134 QRS: 15 T: 60 INTERPRETIVE STATEMENTS: Normal sinus rhythm Normal ECG Compared to ECG 05/03/2019 14:55:16 No significant changes Electronically Signed On 09-19-22 12:35:32 VETERINARY INSPECTOR by Dave Jones
== END 2022-09-18 17:04 | disposition home or self-care (01) ==
LOC: ER 13:30
DX: E86.0 Dehydration (principal); R19.7 Diarrhea, unspecified; E11.9 Type 2 diabetes mellitus without complications; I10 Essential (primary) hypertension; Z88.1 Allergy status to other antibiotic agents
CPT/HCPCS: 96361; 93005; 85025; 36415; 83690; 80053; 74177; 76705; 96375; 96374; 99284; Q9967; J7030; J2405 ×2